=== PATIENT | male | born 1960 | race Caucasian/White ===

== ENCOUNTER 2024-10-08 12:13 | Emergency (ER) | payer OTHER, SELFPAY ==
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
[2024-10-08 12:20] VITALS: BP 170/93; PULSE 66; RESP 18; TEMP 36.6; O2SAT 94; BMI 32.5
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
[2024-10-08] MEDS: Lidocaine 4 % Patch ADH..PATCH 1 PATCH TRANSDERMA (14:01)
[2024-10-08] MEDS: Acetaminophen 325 MG TABLET 975 MG PO (14:02)
[2024-10-08] MEDS: Cyclobenzaprine HCl 5 MG TABLET PO (14:02)
[2024-10-08 14:14] VITALS: BP 165/90; PULSE 60; RESP 17; O2SAT 94
[2024-10-08 15:34] VITALS: BP 165/90; PULSE 60; RESP 17; TEMP 36.6; O2SAT 94
== END 2024-10-08 15:35 | disposition home or self-care (01) ==
PROVIDERS: Emergency Provider Emergency Medicine; PCP Internal Medicine
DX: S06.9X9A Unspecified intracranial injury with loss of consciousness of unspecified duration, initial encounter (principal); S19.9XXA Unspecified injury of neck, initial encounter; M54.2 Cervicalgia; R51.9 Headache, unspecified; M54.50 Low back pain, unspecified; M25.562 Pain in left knee; M25.561 Pain in right knee; V43.52XA Car driver injured in collision with other type car in traffic accident, initial encounter; Y93.9 Activity, unspecified; Y92.410 Unspecified street and highway as the place of occurrence of the external cause; Y99.8 Other external cause status
CPT/HCPCS: 70450; 70486; 72100; 72125; 73564; 99283; 99284

== ENCOUNTER → 2024-10-08 12:42 | Outpatient (BNV) | payer OTHER, SELFPAY | PROVIDERS: Emergency Provider Emergency Medicine; PCP Internal Medicine; Visit Provider Radiology Vascular & Interventional Radiology | DX: M54.2 Cervicalgia (principal); R51.9 Headache, unspecified; M25.562 Pain in left knee; M25.561 Pain in right knee; M54.50 Low back pain, unspecified; V49.40XA Driver injured in collision with unspecified motor vehicles in traffic accident, initial encounter; Z04.3 Encounter for examination and observation following other accident | CPT/HCPCS: 70450; 70486; 72100; 72125; 73564 ==